=== PATIENT | female | born 1930 | race Caucasian/White ===

== ENCOUNTER 2017-12-27 15:42 | Inpatient (IN) | payer OTHER, BC ==
[~2017-12-27] VITALS: Ht 157.5 cm; Wt 80.7 kg
--- NOTE | ~2017-12-27 | EKG ---
[address] [address] ELECTROCARDIOGRAM REPORT Name: NERISSA MANUEL Room #: 360-P ADM IN M.R.#: [id number] Admission: 12/27/17 Attend Phys: Faisal Choi Discharge: Date of : 30 Report #: [id number] THIS REPORT FOR: //name// [facility] Test Date: 2017-12-28 Test Time: 09:27:24 Pat Name: NERISSA MANUEL Department: Room: 360 P Gender: F Frame Table Operator: TATE : 1930 Requested By: Tung Stoner Order Number: [id number] MD: Josué Noriega Measurements Intervals [place] Rate: 82 P: -15 CA: 209 QRS: 28 QRSD: 97 T: 243 QT: 353 QTc: 413 Interpretive Statements Sinus rhythm ST segment abnormalities in the precordial leads, rule out ischemia Compared to ECG 10/31/2015 17:41:07 No significant changes Electronically Signed On 12-28-2017 17:23:55 CDT by Josué Noriega [email or web address] <ELECTRONICALLY SIGNED> By: Josué Noriega MD 12/28/17 1723 6 6 Josué Noriega MD /LENNY
--- NOTE | ~2017-12-27 | CATHLAB ---
[facility] [address] [place] [address] INVASIVE PROCEDURE REPORT Name: NERISSA MANUEL Room #: 364-P ADM IN M.R.#: [id number] Admission: 12/27/17 Attend Phys: Tawanda Andrews Discharge: Date of : 30 Date of Service: 12/30/17 1530 Report #: [id number] THIS REPORT FOR: //name// APPROVED REPORT Study performed: 12/30/2017 12:02:11 Patient Details Patient Status: In-Patient Room #: The patient is a 87 year-old female Event Personnel Josué Noriega Axle Polisher, Tung Biggs Monitor, Ana Paula Bueno Penny, Wes clerk of court Performed Art Access - L femoral artery* Left Heart Cath Coronaries, Bypass Grafts [id number] LHCCORCABG Hemostasis with Manual pressure 18482 Initial Mod Sed Same Phys/QHP Gr5y [id number] Indication Dyspnea, Chest pain Risk Factors Obesity, HypercholesterolemiaPhysical Activity, Coronary Artery DiseaseHypertension Previous Procedures/Diagnoses Previous CABGPrevious PCI Procedure Narrative The patient was brought urgently to the Cardiac Catheterization Laboratory and was prepped and draped in a sterile manner. The Left Groin^ was infiltrated with 1% Lidocaine subcutaneous anesthesia. A PINNACLE 4FR Sheath #[id number] sheath was inserted into the LFA^. Coronary angiography was performed using coronary diagnostic catheters. The right coronary system was accessed and visualized with a JR 4 catheter. The left coronary system was accessed and visualized with a JL 4 catheter. The left ventricle was accessed and visualized with a JR 4 catheter. Left ventricular/Aortic Valve gradient assessed via catheter pullback. Hemostasis was obtained with manual pressure following sheath removal without any complications. The patient tolerated the procedure well and there were no complications associated with the procedure. There was no hematoma. [facility] [place] [address] INVASIVE PROCEDURE REPORT Name: NERISSA MANUEL Room #: 364-P [facility] IN M.R.#: [id number] Admission: 12/27/17 Attend Phys: Tawanda Andrews Discharge: Date of : 30 Date of Service: 12/30/17 1530 Report #: [id number] Intraoperative Conscious Sedation Sedation start time: 12:48 Case end Time: 13:08 Fentanyl 50 mcg Versed 1.5 mg Fluoro Time: 518.00 minutes Dose: DAP 4200.00 cGycm2 518 mGy Contrast Type and Amount: Visipaque 65 ml Coronary Angiography The patient's coronary anatomy is right dominant. Diagnostic Cath Left Main patent vessel, no flow-limiting lesions. LAD Severe occlusion in the proximal segment. There is a patent VAUGHAN graft with an end-to-side anastomosis to the mid LAD. After the anastomosis, there is both retrograde and antegrade flow within the LAD segment. The distal LAD wraps around the apex and terminates in the mid inferior segment. Diagonal 1 Filled via collateral circulation from the apical LAD. Circumflex Patent tuscarora left circumflex, supplies 2 moderate size OM vessels. OM1 Has a moderate stenosis at the ostium, 50%. OM2 Patent vessel, no flow-limiting lesions. Right Coronary Dominant vessel with a stent in the mid segment, widely patent. R PDA Patent vessel, no flow-limiting lesions. RPLV Patent vessel, no flow-limiting lesions. Left Ventriculography Left Ventriculography was not performed. Ejection Fraction was >55% based off patient's Echocardiogram. An LVEDP was measured and there is no gradient across the outflow tract. Hemodynamics The aortic pressure is 121/70 mmHg with a mean of 92 mmHg. The left ventricular pressure is 132/12 mmHg with a mean of mmHg. The left ventricular end diastolic pressure is 15 mmHg. Conclusion 1. Patent VAUGHAN to the mid LAD segment. 2. Patent tuscarora left circumflex system. There is a moderate stenosis in OM1, recommend medical therapy. 3. Patent tuscarora RCA with a previously placed stent. [address] [address] INVASIVE PROCEDURE REPORT Name: NERISSA MANUEL Room #: 364-P [facility] IN M.R.#: [id number] Admission: 12/27/17 Attend Phys: Tawanda Andrews Discharge: Date of : 30 Date of Service: 12/30/17 1530 Report #: [id number] 4. Collateral filling of the first diagonal artery. 5. Recommend medical therapy. <ELECTRONICALLY SIGNED> By: Josué Noriega MD 12/30/17 1530 153 153 Josué Noriega MD /INF
--- NOTE | ~2017-12-27 | D ---
[facility] [address] DISCHARGE SUMMARY Name: NERISSA MANUEL Room #: 364-P [facility] IN M.R.#: [id number] Admission: 12/27/17 Attend Phys: Faisal Choi Discharge: 12/31/17 Date of : 30 Report #: [id number] THIS REPORT FOR: //name// CC: Tawanda Morris DATE OF SERVICE: 12/31/2017 FINAL DIAGNOSES: 1. Coronary artery disease. 2. Hypertension. HOSPITAL COURSE: The patient was admitted with shortness of breath and dyspnea on exertion. Cardiology Service saw her and performed a cardiac catheterization. This revealed patent cardiac bypass vessels with no new stricture amenable to acute treatment. Dr. Noriega added Imdur to her regimen and a statin. She had no other interval complication. PHYSICAL EXAMINATION: GENERAL: On the day of discharge, she was awake and alert, sitting up in the bedside chair. VITAL SIGNS: Temperature 36.9, pulse , respirations 16, blood pressure 114/71, O2 sat 97% on room air. LUNGS: Clear. HEART: Regular. ABDOMEN: Soft, normoactive bowel sounds. EXTREMITIES: No edema. DISPOSITION: She will be discharged to home with diet and activity as tolerated. She is referred for outpatient cardiac rehab. DISCHARGE MEDICATIONS: Lipitor 20 mg, Cozaar 50 mg, aspirin 81 mg, Imdur 30 mg, metoprolol 25 mg, vitamin D, Eliquis 2.5 mg b.i.d., Levoxyl 75 mcg. She is instructed to stop her losartan 25 mg and amlodipine 10 mg. <ELECTRONICALLY SIGNED> By: Tung Stoner MD 01/06/18 1031 1159 1242 Tung Stoner MD /nt
--- NOTE | ~2017-12-27 | H ---
[facility] [place] [address] HISTORY AND PHYSICAL Name: NERISSA MANUEL Room #: 360-P ADM IN M.R.#: [id number] Admission: 12/27/17 Attend Phys: Faisal Choi Discharge: Date of : 30 Report #: [id number] THIS REPORT FOR: //name// CC: Tawanda Morris DATE OF SERVICE: 12/27/2017 CHIEF COMPLAINT: Chest pain and shortness of breath. HISTORY OF PRESENT ILLNESS: The patient is an 87-year-old female who was admitted from the office with progressive dyspnea on exertion. She reported for about the last 6-8 months, she has had progressive shortness of breath with activity. This has increased in intensity in recent weeks to now where she is experiencing chest discomfort that seems to radiate up to her right shoulder and right jaw. She becomes very short of breath even just walking less than 50 feet. She was seen in the office yesterday and walked without any oxygen desaturations, but did complain of shortness of breath and some chest tightness when walking about 50 feet. She does have an extensive cardiac history including cardiac bypass in 2002, followed by additional cardiac stents in 2007. PAST MEDICAL HISTORY: Coronary artery disease, hypertension. Myxoma, surgical removal in 2014, complicated with a postop pneumothorax, which resolved. Paroxysmal atrial fibrillation. PAST SURGICAL HISTORY: Cardiac bypass in 2002. FAMILY HISTORY: Noncontributory. SOCIAL HISTORY: No chronic alcohol or tobacco use. ALLERGIES: ERYTHROMYCIN, AMIODARONE, CODEINE, CEFAZOLIN, BENADRYL, TYLENOL, HYDROCODONE, INDOMETHACIN, PENICILLIN, VIOXX. MEDICATIONS: Eliquis 5 mg twice a day, Lopressor 25 mg, Norvasc 10 mg, losartan 25 mg, Levoxyl 75 mcg, vitamin D. REVIEW OF SYSTEMS: As above. She denies headache, productive cough, fever, chills, nausea, vomiting, diarrhea, constipation, dysuria, syncope. OBJECTIVE: VITAL SIGNS: Temperature 36.9, pulse 55, respirations 20, blood pressure 157/74, O2 sat 93% on room air. GENERAL: She is awake and alert, in no distress. HEAD AND NECK: Unremarkable. LUNGS: Clear. HEART: Regular. [address] [address] HISTORY AND PHYSICAL Name: NERISSA MANUEL Room #: [address] [place] [address] IN M.R.#: [id number] Admission: 12/27/17 Attend Phys: Faisal Choi Discharge: Date of : 30 Report #: [id number] ABDOMEN: Soft, normoactive bowel sounds. EXTREMITIES: No edema. NEUROLOGIC: Motor strength 5/5 throughout. She is alert and oriented. ASSESSMENT: 1. Chest pain. 2. Coronary artery disease. 3. Hypertension. PLAN: I have spoken with Dr. Olivier. Plans a cardiac catheterization later this week, unfortunately she had a dose of Eliquis last night. Other medications to continue from home. I will add a statin medication for now pending results. <ELECTRONICALLY SIGNED> By: Tung Stoner MD 12/28/17 1313 1008 1112 Tung Stoner MD /nt
--- NOTE | ~2017-12-27 | EKG ---
[address] [place] [address] ELECTROCARDIOGRAM REPORT Name: NERISSA MANUEL Room #: 360-P ADM IN M.R.#: [id number] Admission: 12/27/17 Attend Phys: Faisal Choi Discharge: Date of : 30 Report #: [id number] THIS REPORT FOR: //name// [facility] Test Date: 2017-12-27 Test Time: 19:38:56 Pat Name: NERISSA MANUEL Department: Room: 360 P Gender: F Rig Builder: Faisal FERRARA : 1930 Requested By: Tawanda Morris Order Number: [id number] MD: Josué Noriega Measurements Intervals [place] Rate: 79 P: 67 MO: 226 QRS: 30 QRSD: 100 T: 186 QT: 371 QTc: 426 Interpretive Statements Sinus rhythm Ventricular premature complex Prolonged MO interval ST segment abnormalities, rule out inferolateral ischemia Compared to ECG 10/31/2015 17:41:07 ST segment changes Electronically Signed On 12-28-2017 17:17:54 CDT by Josué Noriega [email or web address] <ELECTRONICALLY SIGNED> By: Josué Noriega MD [id number] 37 Josué Noriega MD /LENNY
--- NOTE | ~2017-12-27 | HC ---
[facility] [place] [address] CONSULTATION Name: NERISSA MANUEL Room #: 360-P ADM IN M.R.#: [id number] Admission: 12/27/17 Attend Phys: Faisal Choi Discharge: Date of : 30 Report #: [id number] THIS REPORT FOR: //name// CC: Tawanda Morris DATE OF SERVICE: 12/28/2017 INDICATION: Chest pain. HISTORY OF PRESENT ILLNESS: This is an 87-year-old female presenting with an episode of chest and jaw discomfort. The patient has a history of CABG in 2002 and then subsequent stent insertions, last one in 2006. All of her procedures occurred in [place], [place]. She just moved to approximately 3 months ago. She has been a patient of Dr. Morris for a long time. The patient has a history of left atrial myxoma removed in 2014, also in [place]. More recently, she had problems with the right groin infection requiring surgical debridement. She has a history of paroxysmal atrial fibrillation, on chronic anticoagulation. History of diastolic dysfunction and hypertension. PAST MEDICAL HISTORY: CABG and PCI in 2002 and 2006, left atrial myxoma removed in 2014, history of paroxysmal atrial fibrillation, history of hypertension, history of blindness secondary to macular degeneration. ALLERGIES: Please see the MAR for full list of allergies. MEDICATIONS: Eliquis 5 mg twice a day, levothyroxine, Norvasc 10 mg daily, losartan 25 mg daily, metoprolol 25 mg daily. SOCIAL HISTORY: Denies tobacco use. The patient is legally blind. Lives with her son and . REVIEW OF SYSTEMS: A full 10-point review of systems performed. Only the pertinent positives and negatives are described in the HPI. PHYSICAL EXAMINATION: VITAL SIGNS: Blood pressure is 150/70, heart rate is 85 beats per minute. GENERAL APPEARANCE: This is an overweight female in no acute respiratory distress. HEAD AND EYES: Normocephalic. Sclerae are anicteric. ENT: Oral mucosa moist. NECK: Supple. LUNGS: Clear to auscultation. CARDIAC: Regular rate and rhythm. S1, S2 positive. ABDOMEN: Soft, nontender. EXTREMITIES: No cyanosis, 1+ bilateral lower extremity edema. NEUROLOGIC: Alert and oriented x 3. [facility] [address] [place] [address] CONSULTATION Name: NERISSA MANUEL Room #: [address] [place] [address] IN M.R.#: [id number] Admission: 12/27/17 Attend Phys: Faisal Choi Discharge: Date of : 30 Report #: [id number] LABORATORY VALUES: Pending. ECG reveals sinus rhythm, PVC, resting ST segment abnormalities in the inferior lateral leads. ASSESSMENT AND PLAN: 1. Unstable angina, she presents with an episode of right jaw pain radiating to the left side of her chest several days ago. This is her anginal equivalent, typically requiring percutaneous coronary revascularization. Has not had one in many years. We will need a troponin evaluated. Once her initial evaluation has been established, we will need to consider noninvasive stress testing versus a cardiac catheterization. We will hold Eliquis at this time. 2. Dyspnea on exertion, she has been experiencing dyspnea on exertion, which include walking from room to room at home. This has been progressive, occurring with lesser amounts of exertion. She does not have any overt evidence for heart failure. This may represent silent ischemia. We will obtain an echo. 3. Hypertension, continue with medications. 4. Paroxysmal atrial fibrillation, remains in sinus rhythm. Eliquis is on hold. 5. Edema, Lasix to be initiated. Thank you for allowing me to participate in the care of your patient. <ELECTRONICALLY SIGNED> By: Josué Noriega MD 12/28/17 1710 0922 1258 Josué Noriega MD /nt
--- NOTE | ~2017-12-27 | 2DMMODE ---
[facility] [address] [place] [address] 2 D/M-MODE ECHOCARDIOGRAM Name: NERISSA MANUEL Room #: 360-P ADM IN M.R.#: [id number] Admission: 12/27/17 Attend Phys: Tawanda Andrews Discharge: Date of : 30 Date of Service: 12/28/17 1248 Report #: [id number] THIS REPORT FOR: //name// APPROVED REPORT Study performed: 12/28/2017 10:02:05 EXAM: Comprehensive 2D, Doppler, and color-flow Echocardiogram Patient Location: Echo lab Room #: 360 Status: routine BSA: 1.82 HR: 83 bpm BP: 157/74 mmHg Rhythm: NSR Other Information Study Quality: Adequate Technically limited study due to obesity and lung artifact. Indications Chest pain, short of breath. Hx: CABG, stents, Afib, myxoma removal 2D Dimensions RVDd: 37.00 mm LVEF(%): 66.90 (>50%) IVSd: 13.36 (7-11mm) LVOT Diam: 18.73 (18-24mm) LVDd: 35.25 mm PWd: 12.29 (7-11mm) Ascending Ao: 32.81 (22-36mm) LVDs: 22.49 (25-40mm) Aortic Root: 29.61 mm Contreras's LVEF: 66.90 % Volumes Left Atrial Volume (Systole) Single Plane 4CH: 60.06 mL Single Plane 2CH: 51.91 mL LA ESV Index: 33.00 mL/m2 Aortic Valve AoV Peak Bennie.: 1.59 m/s AO Peak Gr.: 10.14 mmHg LVOT Max P.55 mmHg LVOT Max V: 0.94 m/s ANTHONY Vmax: 1.63 cm2 [facility] [employer] [place] [address] 2 D/M-MODE ECHOCARDIOGRAM Name: NERISSA MANUEL Room #: 360-[facility] IN M.R.#: [id number] Admission: 12/27/17 Attend Phys: Tawanda Andrews Discharge: Date of : 30 Date of Service: 12/28/17 1248 Report #: [id number] Mitral Valve E/A Ratio: 0.6 MV Decel. Time: 101.64 ms MV E Max Bennie.: 0.76 m/s MV A Bennie.: 1.31 m/s MV PHT: 29.48 ms IVRT: 110.73 ms Pulmonary Valve PV Peak Bennie.: 1.27 m/s PV Peak Gr.: 6.44 mmHg Pulmonary Vein P Vein S: 0.62 m/s P Vein A: 0.28 m/s P Vein D: 0.25 m/s P Vein A Dur.: 96.9 msec P Vein S/D Ratio: 2.48 Tricuspid Valve TR Peak Bennie.: 2.49 m/s RAP Estimate: 5.00 mmHg TR Peak Gr.: 24.86 mmHg PA Pressure: 30.00 mmHg Left Ventricle The left ventricle is normal size. Mild concentric left ventricular hypertrophy. Left ventricular systolic function is grossly normal. LVEF is 55-60%. Mild diastolic dysfunction is present (impaired relaxation pattern). Right Ventricle The right ventricle is normal size. The right ventricular systolic function is normal. Atria Left atrium is mildly dilated. The right atrium size is normal. Aortic Valve Aortic valve is moderately calcified. Mild aortic regurgitation. There is no aortic valvular stenosis. Mitral Valve Mitral valve leaflets are mildly thickened and calcified. Moderate mitral annular calcification. There is no mitral valve regurgitation noted. No evidence of mitral valve stenosis. Tricuspid Valve The tricuspid valve is normal in structure. Moderate tricuspid [address] [address] 2 D/M-MODE ECHOCARDIOGRAM Name: NERISSA MANUEL Room #: 360-P [facility] IN [facility]#: [id number] Admission: 12/27/17 Attend Phys: Tawanda Andrews Discharge: Date of : 30 Date of Service: 12/28/17 1248 Report #: [id number] regurgitation. Estimated PAP is 30mmHg. Pulmonic Valve The pulmonary valve is normal in structure. Trace pulmonic regurgitation. Great Vessels The aortic root is normal in size. The ascending aorta is normal in size. IVC is normal in size and collapses >50% with inspiration. Pericardium There is no pericardial effusion. <Conclusion> The left ventricle is normal size. Mild concentric left ventricular hypertrophy. Left ventricular systolic function is grossly normal. Mild diastolic dysfunction is present (impaired relaxation pattern). The right ventricle is normal size. Left atrium is mildly dilated. Aortic valve is moderately calcified. Mild aortic regurgitation. Mitral valve leaflets are mildly thickened and calcified. Moderate mitral annular calcification. Moderate tricuspid regurgitation. Estimated PAP is 30mmHg. <ELECTRONICALLY SIGNED> By: Josué Noriega MD 12/28/17 1248 1248 1248 Josué Noriega MD /INF
[~2017-12-27 15:42] MED LIST: AMLODIPINE BESY10 MG PO; ELIQUIS2.5 MG PO; HYDROCODONE-AP1 EAC6 PO; LEVOTHYROXIN0.075 MG PO; LOPRESSOR25 PO; NORVASC5 MG PO; PREMARIN1.25 MG PO; VANCO1GM IV; VITAMIN D1000 UNI1
[2017-12-27 16:41] VITALS: BP 100/66; BP 123/61
[2017-12-27] MEDS ORDERED: COZAAR 25 MG TA25 M1 PO (17:25)
[2017-12-27 20:05] VITALS: BP 139/73
[2017-12-27 23:50] VITALS: BP 149/83
[2017-12-28 03:12] VITALS: BP 128/70
[2017-12-28 07:22] VITALS: BP 157/74
[2017-12-28 09:57] LABS: HEMATOCRIT 36.1 % (37.0-47.0); HEMOGLOBIN 12.5 gm/dL (12.0-15.0); MCH 29.8 pg (26.0-34.0); MCHC 34.7 g/dL (28.0-37.0); MCV 85.8 fL (80.0-100.0); RBC 4.21 mil/uL (4.20-5.00); RDW 15.6 % (10.5-14.5); WBC 4.9 thou/uL (4.0-11.0)
[2017-12-28 10:11] LABS: ALBUMIN 2.9 g/dL (3.4-5.0); CALCIUM 9.1 mg/dL (8.5-10.1); CREATININE 1.3 mg/dL (0.6-1.0); POTASSIUM 3.6 mmol/L (3.5-5.1); TOTAL BILIRUBIN 0.8 mg/dL (<0.1-1.0); TOTAL PROTEIN 6.8 g/dL (6.4-8.2)
[2017-12-28 11:14] VITALS: BP 147/78
[2017-12-28 16:00] VITALS: BP 150/80
[2017-12-28 20:45] VITALS: BP 177/85
[2017-12-29 04:30] VITALS: BP 150/81
[2017-12-29 04:56] LABS: CALCIUM 9.1 mg/dL (8.5-10.1); CREATININE 1.6 mg/dL (0.6-1.0); POTASSIUM 3.7 mmol/L (3.5-5.1)
[2017-12-29 05:14] LABS: CHOLESTEROL 229 mg/dL (<200); HDL CHOLESTEROL 57 mg/dL (>40); LDL CHOLESTEROL 124 mg/dL (<100); TRIGLYCERIDE 244 mg/dL (<150); VLDL 49 mg/dL (<40)
[2017-12-29 05:16] LABS: SERUM ASSESSMENT Slight Lipemia
[2017-12-29 07:55] VITALS: BP 139/68
[2017-12-29 11:25] VITALS: BP 118/92
[2017-12-29 16:58] VITALS: BP 149/70
[2017-12-29 21:00] VITALS: BP 122/59
[2017-12-30] VITALS (13 sets, daily range): BP systolic 106–147; BP diastolic 45–85
[2017-12-30 06:11] LABS: CALCIUM 8.2 mg/dL (8.5-10.1); CREATININE 1.6 mg/dL (0.6-1.0); POTASSIUM 3.5 mmol/L (3.5-5.1)
[2017-12-30] MEDS ORDERED: LIPITOR 20 MG T20 M1 PO (07:59)
[2017-12-30] MEDS ORDERED: COZAAR 50 MG TA50 M2 PO (07:59)
[2017-12-30] MEDS ORDERED: ASPIR 8181 MG PO (07:59)
[2017-12-31 04:17] VITALS: BP 139/85
[2017-12-31 06:22] LABS: HEMATOCRIT 33.1 % (37.0-47.0); HEMOGLOBIN 11.4 gm/dL (12.0-15.0); MCH 30.3 pg (26.0-34.0); MCHC 34.4 g/dL (28.0-37.0); MCV 88.1 fL (80.0-100.0); RBC 3.75 mil/uL (4.20-5.00); RDW 15.3 % (10.5-14.5); WBC 4.6 thou/uL (4.0-11.0)
[2017-12-31 06:32] LABS: CALCIUM 8.2 mg/dL (8.5-10.1); CREATININE 1.4 mg/dL (0.6-1.0); POTASSIUM 3.7 mmol/L (3.5-5.1)
[2017-12-31 08:20] VITALS: BP 114/71
[2017-12-31] MEDS ORDERED: IMDUR 30 MG TAB30 M1 PO (11:27)
[2017-12-31 11:43] VITALS: BP 114/71
[2017-12-31 12:05] VITALS: BP 114/71
== END 2017-12-31 12:23 | disposition home or self-care (01) | DRG 286 ==
LOC: 4E 15:42 → 3W 15:42
PROVIDERS: Internal Medicine Cardiovascular Disease; Internal Medicine Geriatric Medicine
PROC: B211YZZ Fluoroscopy of Multiple Coronary Arteries using Other Contrast (ICD-10-PCS; principal; 2017-12-30)
PROC: B213YZZ Fluoroscopy of Multiple Coronary Artery Bypass Grafts using Other Contrast (ICD-10-PCS; principal; 2017-12-30)
PROC: 4A023N7 Measurement of Cardiac Sampling and Pressure, Left Heart, Percutaneous Approach (ICD-10-PCS; principal; 2017-12-30)
DX: I25.110 Atherosclerotic heart disease of native coronary artery with unstable angina pectoris (principal); I50.31 Acute diastolic (congestive) heart failure; I48.0 Paroxysmal atrial fibrillation; I10 Essential (primary) hypertension; H54.7 Unspecified visual loss; E78.00 Pure hypercholesterolemia, unspecified; H35.30 Unspecified macular degeneration; Z95.1 Presence of aortocoronary bypass graft; Z88.6 Allergy status to analgesic agent; Z88.1 Allergy status to other antibiotic agents; Z88.0 Allergy status to penicillin; Z88.8 Allergy status to other drugs, medicaments and biological substances; Z79.899 Other long term (current) drug therapy; I11.0 Hypertensive heart disease with heart failure
CPT/HCPCS: 10779